=== PATIENT | male | born 1950 | race Caucasian/White ===

== ENCOUNTER → 2017-06-03 | Outpatient (REF) | payer MEDICARE | LOC: M LAB REF 12:09 | PROVIDERS: ATTEND Surgery | DX: C44.619 Basal cell carcinoma of skin of left upper limb, including shoulder (principal) ==

== ENCOUNTER → 2017-07-13 | Outpatient (REF) | payer MEDICARE | LOC: M LAB REF 12:23 | PROVIDERS: ATTEND Surgery | DX: C44.622 Squamous cell carcinoma of skin of right upper limb, including shoulder (principal); L85.8 Other specified epidermal thickening ==

== ENCOUNTER → 2018-11-15 | Outpatient (CLI) | payer MEDICARE ==
[2018-11-15 14:01] LABS: BLOOD UREA NITROGEN 11 MG/DL (7-18); CREATININE FOR GFR 0.74 MG/DL (0.70-1.30); GLOMERULAR FILTRATION RATE > 60.0 (>49)
== END ==
LOC: M LAB 12:03
PROVIDERS: ATTEND Orthopaedic Surgery
DX: M67.471 Ganglion, right ankle and foot (principal)

== ENCOUNTER → 2019-01-25 | Outpatient (REF) | payer OTHER | LOC: M LAB REF 15:51 | PROVIDERS: ATTEND Orthopaedic Surgery | DX: M67.471 Ganglion, right ankle and foot (principal) ==

== ENCOUNTER → 2019-08-28 | Outpatient (REF) | payer OTHER ==
--- NOTE | 2019-08-28 12:41 | REP ---
BILATERAL HIP SERIES: Four views. HISTORY: Bilateral hip pain. FINDINGS: AP and frog-leg views of both hips are obtained. There is mild bilateral superior hip joint space narrowing and acetabular spur formation consistent with early osteoarthritis. Femoral heads are smooth and rounded. There are tendon insertion site calcifications at the ischium bilaterally. Prostate calcifications are noted. There is an exostosis or postsurgical irregularity along the lateral margin of the iliac bone on the right. This may be a benign osteochondroma or postoperative donor site. There is tendon insertion site spurring adjacent to the lesser trochanter on the right. IMPRESSION: Mild bilateral hip joint osteoarthritis and tendon insertion site spurring. Osteochondroma versus postoperative change producing irregularity of the iliac crest on the right. Electronically Signed by Parker Rodriguez MD 08/28/2019 05:58 P
--- NOTE | 2019-08-28 12:41 | REP ---
LEFT ELBOW SERIES: Four views. HISTORY: Swelling or mass left elbow. FINDINGS: Four views of the left elbow demonstrate coronoid and olecranon process spurring. There is some chondrocalcinosis visible on the oblique radiograph at the lateral aspect of the radio capitellar articulation. IMPRESSION: Olecranon and coronoid process spurring of the proximal ulna. 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 No acute bony abnormality. Electronically Signed by Parker Rodriguez MD 08/28/2019 05:58 P
== END ==
LOC: M RAD 10:30 → EDSTATUS 09-05 15:48
PROVIDERS: ATTEND Family Medicine
DX: M25.422 Effusion, left elbow (principal); M25.551 Pain in right hip; M25.552 Pain in left hip; M16.0 Bilateral primary osteoarthritis of hip; M77.8 Other enthesopathies, not elsewhere classified